=== PATIENT | female | born 1965 | race Caucasian/White ===

== ENCOUNTER → 2016-12-09 | Outpatient (CLI) | payer OTHER, MEDICAID | LOC: FIMAGING 10:01 | PROVIDERS: ATTEND Physician Assistant | DX: D64.9 Anemia, unspecified (principal); N18.9 Chronic kidney disease, unspecified ==

== ENCOUNTER → 2018-06-23 | Outpatient (CLI) | payer OTHER, MEDICAID | PROVIDERS: ATTEND Internal Medicine Gastroenterology | DX: R13.12 Dysphagia, oropharyngeal phase (principal); K44.9 Diaphragmatic hernia without obstruction or gangrene; K22.4 Dyskinesia of esophagus | CPT/HCPCS: 74220; 74230; 92611; G8996; G8997; G8998 ==

== ENCOUNTER → 2018-07-11 | Outpatient (CLI) | payer OTHER, MEDICAID ==
[2018-07-11 11:35] LABS: PLATELET COUNT 214 10^3/uL (150-400)
== END ==
LOC: FPAT 10:48
PROVIDERS: ATTEND Internal Medicine Gastroenterology
DX: Z01.818 Encounter for other preprocedural examination (principal)

== ENCOUNTER 2018-07-23 09:19 | Emergency (ER) | payer OTHER, MEDICAID ==
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
[2018-07-23 12:06] VITALS: BP 95/63
== END 2018-07-23 12:03 | disposition home or self-care (01) ==
PROC: 2W3RX1Z Immobilization of Left Lower Leg using Splint (ICD-10-PCS; principal; 2018-07-23)
DX: S82.242A Displaced spiral fracture of shaft of left tibia, initial encounter for closed fracture (principal); S82.432A Displaced oblique fracture of shaft of left fibula, initial encounter for closed fracture; G82.54 Quadriplegia, C5-C7 incomplete; W23.1XXA Caught, crushed, jammed, or pinched between stationary objects, initial encounter; Y92.9 Unspecified place or not applicable; Z99.3 Dependence on wheelchair

== ENCOUNTER 2018-07-29 10:21 | Day surgery (SDC) | payer OTHER, MEDICAID ==
[2018-07-29] MEDS ORDERED: LR 1,000 ML IV ONE (10:43)
[2018-07-29] MEDS ORDERED: LIDOCAINE 1% 2 ML INJ ID PRN (10:43)
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
[2018-07-29] MEDS ORDERED: PROPOFOL/EMULSION 500 MG/50 ML BOTTLE IV ONE (11:51)
--- NOTE | 2018-07-29 11:56 | PDGENHP ---
History & Physical Chief Complaint: dysphagia History of Present Illness: trouble swallowing with possible stricture on UGI Pertinent Past, Social, Family History: quadraplegia Relevant Physical Exam: cv rrr s1s2 nl. chest CTA. abd + bs soft Cardiorespiratory Assessment: asa 11
--- NOTE | 2018-07-29 12:20 | GIREPORT ---
Formerly [facility], 1928–1983 Surgical Services - Endoscopy Department Patient Name: Emilee Raines Procedure Date: 07/29/2018 11:34 AM Patient Type: Outpatient Attending MD/ ER Physician: Enid Hogan MD Procedure: Upper GI endoscopy Indications: Dysphagia, Abnormal UGI series abnormal motility with possible strictur e. Providers: Enid Hogan MD Medicines: Monitored Anesthesia Care Complications: No immediate complications. Description of Procedure: After obtaining informed consent, the endoscope was passed under direct vision. Throughout the procedure, the patient's blood pressure, pulse, and oxygen saturations were monitored continuously. The Endoscope was intro duced through the mouth, and advanced to the second part of duodenum. The [facility] er GI endoscopy was accomplished without difficulty. The patient tolerated th e procedure well. Findings: LA Grade C (one or more mucosal breaks continuous between tops of 2 or more mucosal folds, less than 75% circumference) esophagitis with no bleedin g was found in the lower third of the esophagus. A medium-sized hiatal hernia was present. The stomach was normal. The examined duodenum was normal. Estimated Blood Loss: Estimated blood loss: none. Post Op Diagnosis: - LA Grade C reflux esophagitis. No stricture seen. Dilation not done d ue to active inflammation. - Medium-sized hiatal hernia. - Normal stomach. - Normal examined duodenum. - No specimens collected. Recommendation: - Patient has a contact number available for emergencies. The signs and symptoms of potential delayed complications were discussed with the pat ient. Return to normal activities tomorrow. Written discharge instructions we re provided to the patient. - Resume previous diet. - Continue present medications. - Use Prilosec OTC 20 mg PO daily. - Return to GI office in 6 months. - Discharge patient to home. - Thank you for allowing me to participate in the care of your patient. Attending Participation: I personally performed the entire procedure. Enid Hogan MD Enid Hogan MD 07/29/2018 12:20:24 PM This report has been signed electronicallyEnid Hogan MD Number of Addenda: 0 Note Initiated On: 07/29/2018 11:34 AM [email or web address]
--- NOTE | 2018-07-29 12:21 | POSTANESTH ---
Post Anesthetic Evaluation Cardiovascular Status: Normal, Stable Respiratory Status: Normal, Stable Level of Consciousness/Mental Status: Mildly Sleepy, Arousable Pain Control: Adequate, Prn Tx Ordered Nausea/Vomiting Control: Adequate, Prn Tx Ordered Complications Possibly Related to Anesthesia: None Noted
[2018-07-29] MEDS ORDERED: ALBUTEROL 3 ML DEYVIAL IH PRN (12:35)
[2018-07-29] MEDS ORDERED: HYDROCODONE/APAP 5/325 TAB PO PRN (12:35)
[2018-07-29] MEDS ORDERED: oxyCODONE IR 5 MG TAB PO PRN (12:35)
[2018-07-29] MEDS ORDERED: LR 500 ML IV PRN (12:35)
[2018-07-29] MEDS ORDERED: HYDROmorphONE/DILAUDID 2 MG/ML INJ IVP PRN (12:35)
[2018-07-29] MEDS ORDERED: NALOXONE HCL 0.4 MG/ML INJ IVP PRN (12:35)
[2018-07-29] MEDS ORDERED: fentaNYL 100 MCG/2 ML INJ IVP PRN (12:35)
[2018-07-29] MEDS ORDERED: ONDANSETRON 4 MG/2 ML VIAL IVP PRN (12:35)
[2018-07-29] MEDS ORDERED: MIDAZOLAM 2 MG/2 ML VIAL IVP ONE (12:39)
[2018-07-29] MEDS ORDERED: fentaNYL 100 MCG/2 ML INJ IVP ONE (12:40)
[2018-07-29 12:51] VITALS: BP 109/77
== END 2018-07-29 13:23 | disposition home or self-care (01) ==
LOC: FSGY 10:21
PROVIDERS: ATTEND Internal Medicine Gastroenterology
PROC: 0DJ08ZZ Inspection of Upper Intestinal Tract, Via Natural or Artificial Opening Endoscopic (ICD-10-PCS; principal; 2018-07-29 12:00)
DX: K20.9 Esophagitis, unspecified (principal); K44.9 Diaphragmatic hernia without obstruction or gangrene; G89.29 Other chronic pain
CPT/HCPCS: J2704

== ENCOUNTER 2018-11-05 14:38 | Inpatient (IN) | payer OTHER, MEDICAID ==
[2018-11-05] MEDS ORDERED: NS 1,000 ML IV ONE ×2 (14:53)
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
[2018-11-05 15:04] LABS: PLATELET COUNT 129 10^3/uL (150-400)
[2018-11-05] MEDS ORDERED: KETOROLAC 15 MG/1 ML SDV IVP ONE (15:58)
[2018-11-05] MEDS: CIPROFLOXACIN 400 MG/DEXTROSE 200 ML IV ONE ×2 (16:23→16:49)
[2018-11-05] MEDS ORDERED: ACETAMINOPHEN 325 MG TAB PO PRN (17:31)
[2018-11-05] MEDS ORDERED: ZOLPIDEM TARTRATE 5 MG TAB PO PRN (17:31)
[2018-11-05] MEDS ORDERED: ONDANSETRON 4 MG/2 ML VIAL IVP PRN (17:31)
--- NOTE | 2018-11-05 17:58 | PDGENHP ---
History and Physical History and Physical: CC: Cough and shortness of breath with some pleuritic chest discomfort HISTORY: This patient comes to the ER today for cough fever and shortness of breath. On arrival to the ER she was noted to be hypotensive and tachycardic but not hypoxemic. Her story goes back to October 21 when she started noticing feeling cold and was having some leaking of urine around her chronic indwelling Mead catheter. She saw an outpatient clinic physician on that day. A urine analysis showed 25 white blood cells. A culture was done but deemed to show contaminant. She was called back on October 26 for a repeat culture. She also changed the catheter on that date and for a few days the leaking stopped and she felt that her catheter was draining better. However bladder catheter again felt clogged and she was leaking around it for the past 7 days now. For the last 2 days she has developed cough shortness of breath and fevers and today her temperature was 102.7 degrees. In addition to the cough and shortness of breath she is noticing some pleuritic chest discomfort. Notably as her October 26 urine culture had growth of 3 different bacteria she was started on Cipro last night orally. She has neurogenic bladder from a spine injury with chronic indwelling Mead catheter. She has had some infections in the past. She has had suspected bacterial pneumonia on 1 occasion and a viral lung infection on another occasion. ROS: Her appetite is poor but she is not vomiting. Her fluid intake has been decreased A comprehensive 10 system review revealed no other significant findings PAST MEDICAL HISTORY: C6 quadriplegia related to an accident Chronic indwelling Mead catheter from neurogenic bladder urinary tract infections Spine surgeries Tracheostomy FAMILY MEDICAL HISTORY: No related or pertinent medical issues in relatives SOCIAL HISTORY: Lives in a private home Has caretakers at home MEDICATIONS: The patients list has been reconciled by our clinical pharmacist in the EMR. I have reviewed the list and ordered appropriate medicines. PHYSICAL EXAMINATION: Vital Signs: Initial blood pressure 99/65, pulse 132, temperature 38 degrees, respirations 26. Improved in the ER to 110/70, pulse 100, respirations 16. 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 Compared to previous images there is some very subtle abnormality in the left load mid lung that could represent possible infiltrate of pneumonia. Lungs are slightly hyperexpanded. Old hardware in her cervical spine 12 LEAD EKG: None at present ASSESSMENT: * SIRS, Likely Early Sepsis (note that her presenting blood pressure of 99/65 is normal for her and she is rarely higher than that in fact usually lower.) * Suspect pneumonia community-acquired as cause of the sepsis * PE is also in differential with chest pain and a high D-dimer and minimal infiltrate, a * Metabolic acidosis * I am doubtful as to whether she has an actual urinary tract infection, however if she does the antibiotics given for her respiratory illness will treat her urinary illness and her catheter was changed this morning at home * Quadriplegia with neurogenic bladder and chronic indwelling Mead catheter; she has been having difficulty whether catheter at home lately and from the description I suspect the catheter has been plugging and she has been leaking around the catheter * Normocytic anemia. She has a chronic normocytic anemia usually at hemoglobin 11 she is now hemoglobin just under 10 PLANS: * Inpatient admission for further diagnostic evaluations and definitive treatment of above presentation, will need more than 48 hr * I have ordered a CT of chest to further assess for pneumonia and/or PE * Blood cultures have been drawn in the ER will follow those for results * Respiratory pathogen panel * At this point the patient does not need further fluid resuscitation but will watch closely for any recurrence of sepsis signs * DVT prophylaxis * Skin protection precautions here due to her quadriplegia I have reviewed the patient's case in detail with Dr. Dr. Toby Light I have reviewed the patient's past medical records as part of this assessment, including previous hospital admission records
[2018-11-05] MEDS ORDERED: IOPAMIDOL (ISOVUE 370) 100 ML BTL IV ONE (18:11)
[2018-11-05] MEDS: CIPROFLOXACIN 500 MG TAB PO SCH (19:57)
[2018-11-05] MEDS: OSELTAMIVIR PHOSPHATE 75 MG CAP PO SCH (19:57)
[2018-11-05] MEDS ORDERED: MELATONIN 3 MG TAB PO SCH (21:00)
[2018-11-05] MEDS: ALBUTEROL 3 ML DEYVIAL IH PRN (22:47)
[2018-11-06 05:34] LABS: PLATELET COUNT 134 10^3/uL (150-400)
[2018-11-06] MEDS: OSELTAMIVIR PHOSPHATE 75 MG CAP PO SCH (08:21)
[2018-11-06] MEDS: CIPROFLOXACIN 500 MG TAB PO SCH (08:22)
[2018-11-06] MEDS ORDERED: DARIFENACIN HYDROBROMIDE 15 MG PO SCH (09:00)
[2018-11-06] MEDS ORDERED: ENOXAPARIN 40 MG/0.4 ML SYR SC SCH (09:00)
--- NOTE | 2018-11-06 09:34 | PDMN ---
Medical Necessity Medical necessity: Pt meets IP criteria as of 11/05/2018 per and BECCA [id number] ( pneumonia, community acquired); est los > 2 mn for ongoing tx and management of pneumonia with tachycardia, fever and dyspnea as well as possible UTI in a quadriplegic patient with chronic indwelling de paz catheter; requiring further workup, IV ABX and PT/OT.
--- NOTE | 2018-11-06 10:10 | ASMTCMCOM ---
CM Note CM Note Notes: Pt is a 53 yo F, presents with pneumonia, sepsis, UTI. Pt is a C6 quadraplegic, hx neurogenic bladder, de paz cath, and tracheostomy. Pt lives in a private home, has caretakers at home. Pt's last admission to [facility] was in 2008. MDPOA is in chart. No therapies ordered at this time. CM to follow. Plan: TBD Date Signed: 11/06/2018 10:10 AM Electronically Signed By:ESCOBAR Vicente
[2018-11-06 11:33] VITALS: BP 126/82
[2018-11-06] MEDS: ALBUTEROL 3 ML DEYVIAL IH PRN (12:30)
[2018-11-06] MEDS ORDERED: POTASSIUM CL 20 MEQ PKT PO SCH (14:15)
[2018-11-06] MEDS ORDERED: POTASSIUM CL 20 MEQ PKT PO ONE (14:30)
--- NOTE | 2018-11-06 15:10 | ASDISCHSUM ---
Discharge Information Plan Status:Home with No Needs Medically Cleared to Leave: Discharge Date: CM D/C Disposition:Home, Routine, Self-Care ADT D/C Disposition:Home, Routine, Self-Care Projected Discharge Date: Transportation at D/C:ALS/BLS Discharge Delay Reason: Follow-Up Date: Discharge Slot: Final Diagnosis: Placement Information Patient Contact Information Contact Name:JAYLA Relationship:Daughter Address:[address] [place] [address] Work Phone: City:[facility] Phone: State/Zip Code:[place] [address] Email: Financial Information Financial Class:Medicare Primary Plan Desc:MEDICARE INPATIENT Primary Plan Number:[id number] Secondary Plan Desc:[place] Secondary Plan Number:[id number] Assessment Information [facility] CM Progress Note CM Note CM Note Notes: Pt is a 53 yo F, presents with pneumonia, sepsis, UTI. Pt is a C6 quadraplegic, hx neurogenic bladder, de paz cath, and tracheostomy. Pt lives in a private home, has caretakers at home. Pt's last admission to [facility] was in 2008. MDPOA is in chart. No therapies ordered at this time. CM to follow. Plan: TBD Date Signed: 11/06/2018 10:10 AM Electronically Signed By:ESCOBAR Vicente Case Management Discharge Plan Note Case Management Discharge Discharge Order Complete? Answers: Yes Patient to Obtain Answers: Other Notes: SETH, BLS Medications Transportation Arranged Answers: [facility] Stretcher Case Management Transport Answers: Yes Form Complete Discharge Comments Notes: CM met with pt. Her transport person was unable to transport, CM arranged BLS transport through [facility] for 3:45pm today. CM provided education. Pt reported no other needs at this time. has services arranged for care at home. Date Signed: 11/06/2018 03:09 PM Electronically Signed By:ESCOBAR Vicente Intervention Information
--- NOTE | 2018-11-06 15:10 | ASMTDCNOTE ---
Case Management Discharge Discharge Order Complete? Answers: Yes Patient to Obtain Answers: Other Notes: [facility], BLS Medications Transportation Arranged Answers: [facility] Stretcher Case Management Transport Answers: Yes Form Complete Discharge Comments Notes: CM met with pt. Her transport person was unable to transport, CM arranged BLS transport through [facility] for 3:45pm today. CM provided education. Pt reported no other needs at this time. has services arranged for care at home. Date Signed: 11/06/2018 03:09 PM Electronically Signed By:ESCOBAR Vicente
--- NOTE | 2018-11-06 15:13 | ASMTLACE ---
LACE Length of stay for Answers: Less than 1 day current admission Acuity / Level of Answers: Yes Care: Did the patient have an inpatient admission? Comorbidities - select Answers: Other Notes: C6 Quad all that apply # of Emergency department Answers: 1-2 visits in the last 6 months Score: 5 Date Signed: 11/06/2018 03:12 PM Electronically Signed By:ESCOBAR Vicente
--- NOTE | 2018-11-07 15:37 | GDS ---
SERVICE: [facility] hospitalist. CONSULTS: None. PROCEDURE: 1. Chest x-ray on the day of admission showing possible bilateral pneumonia, lower cervical fusion h ardware. 2. CT chest scan done the day of admission, negative for pulmonary embolism, patchy bilateral lower lobe infiltrate, atelectasis versus early pneumonia. HISTORY AND PHYSICAL: Please see previously dictated note by Dr. Brink. ADMISSION DIAGNOSES: 1. Systemic inflammatory response syndrome. 2. Community-acquired pneumonia. 3. Abnormal urine culture. 4. Quadriplegia. 5. Normocytic anemia. DISCHARGE DIAGNOSES: 1. Acute influenza A. 2. Viral pneumonitis. 3. Recent abnormal urine culture. 4. Quadriplegia. 5. Normocytic anemia, chronic. HOSPITAL COURSE: The patient is a 53-year-old female with quadriplegia that came into the emergency department for evaluation because of cough, fever, and shortness of breath. She had been evaluated e david in the week at her primary care provider when she was having some mild malaise, at which time, a urine culture was sent. Urine culture came back with 3 organisms and she was started on Cipro 500 mg b.i.d. on the day prior to admission. She subsequently developed shortness of breath, fever up t o 102.7, and cough, so came into the emergency department for evaluation. She had a chest x-ray as a michael, along with CBC showing pancytopenia, along with an abnormal D-dimer, which resulted in a CT sca n as above. She was admitted to the hospital for presumed community-acquired pneumonia, antibiotic treatment, SIR S. Subsequently, her influenza swab returned positive for influenza A. Overnight, she was given IV fluids, and on the day of discharge, she wanted to go home and continue convalescing at home. She wa s able to eat and drink without difficulty. She had repeat lab work, which showed ongoing pancytopen ia about the same, and mild hypokalemia, which was replaced orally before she left. She is a quadriplegic and says that she will feel better and recuperate better at home where she has all of her equipment and it is easier to take care of herself, along with the assistance of her famil y members. She had low-grade temperatures throughout her stay. Preliminary blood cultures were negative and her O2 remained stable on room air. She felt significantly better after IV fluid hydration and agreed t o a quick followup with her primary care provider at my practice, [facility]; kelsie poon, she was discharged home. DISCHARGE MEDICATIONS: She should continue her home medications, which included Cipro 500 mg b.i.d., along with Tamiflu to complete a full 5 day course of treatment. She should follow up with her [facility] care provider, Neva Gilmore in the clinic in the next 3 to 5 days or she can also see me in the [facility] clinic. If at any time she has increasing shortness of breath, unable to stay hydrated, or other concerns, she should return immediately for re-evaluation. Review of chest x-ray does not reveal a lobar pneumonia, so it is quite likely that this is viral pne umonitis related to influenza, so antibiotics are not indicated (other than for her previously diagno sed urinary tract infection). /[id number]/MODL
--- NOTE | 2018-11-07 16:24 | CPEKG ---
Test Reason : OPEN Blood Pressure : / mmHG Vent. Rate : 126 BPM Atrial Rate : 127 BPM P-R Int : 142 ms QRS Dur : 072 ms QT Int : 335 ms P-R-T Axes : 053 029 000 degrees QTc Int : 486 ms Sinus tachycardia Probable left atrial enlargement Borderline repol abnormality, diffuse leads Compared with 07/11/2018, HR faster. Repol abnormality now present Confirmed by Trish Hong ([id number]) on 11/07/2018 4:23:48 PM Referred By: Confirmed By:Trish Hong
== END 2018-11-06 16:16 | disposition home or self-care (01) | DRG 193 ==
LOC: EDUNIT# → F3E 17:30
PROVIDERS: ADMIT Internal Medicine; ATTEND Internal Medicine
DX: J10.08 Influenza due to other identified influenza virus with other specified pneumonia (principal); J18.9 Pneumonia, unspecified organism; G82.53 Quadriplegia, C5-C7 complete; Z98.1 Arthrodesis status; Z96.0 Presence of urogenital implants; Z87.440 Personal history of urinary (tract) infections; N31.9 Neuromuscular dysfunction of bladder, unspecified; D64.9 Anemia, unspecified
CPT/HCPCS: 84484-ER; 96365; J0744; J1650; J1885; J1956; J7613; Q9967

== ENCOUNTER 2018-11-09 15:02 | Inpatient (IN) | payer OTHER, MEDICAID ==
[2018-11-09] MEDS ORDERED: NS 500 ML IV ONE (15:37)
[2018-11-09] MEDS ORDERED: ALTEPLASE 2 MG VIAL IVP PRN (16:19)
--- NOTE | 2018-11-09 16:19 | EDPHY ---
H & P Stated Complaint: SOB, cough, recent pneumonia and influenza. Time Seen by Provider: 11/09/18 15:36 HPI/ROS: CHIEF COMPLAINT: Hypoxia HISTORY OF PRESENT ILLNESS: 53-year-old female with quadriplegia presents with hypoxia. She was admitted on 11/05/2018 for influenza and pneumonia. She was discharged home 2 days ago on Cipro for a urinary tract infection and on Tamiflu for influenza. Since discharge home, she has continued to have a moderate cough, fatigue and decreased appetite. No fever or chills. She was seen in her primary care physician's office just prior to arrival and oxygen saturation was 85% on room air. She denies feeling short of breath. REVIEW OF SYSTEMS: complete 10 point ROS reviewed and is negative except for the noted elements in the HPI - Personal History Current Tetanus Diphtheria and Acellular Pertussis (TDAP): Yes - Medical/Surgical History Hx Asthma: No Hx Chronic Respiratory Disease: No Hx Diabetes: No Hx Cardiac Disease: No Hx Renal Disease: No Hx Cirrhosis: No Hx Alcoholism: No Hx HIV/AIDS: No Hx Splenectomy or Spleen Trauma: No Other PMH: C6 quad. R brachial artery inj. UTI. Pneumonia, influenza oct 2018. - Social History Smoking Status: Never smoked Drug Use: None Additional Social History: Lives in own home - Physical Exam Exam: General Appearance: Alert, pleasant and talkative, does not appear ill Eyes: Pupils equal and round, no conjunctival pallor or injection ENT, Mouth: Mucous membranes moist Neck: Normal inspection Respiratory: Lungs are clear to auscultation Cardiovascular: Regular rate and rhythm Gastrointestinal: Abdomen is soft, distended and nontender Neurological: Quadriplegia Skin: Warm and dry Extremities: No tenderness or swelling Psychiatric: Mood and affect normal Constitutional: Initial Vital Signs Temperature (C) 36.4 C 11/09/18 15:08 Heart Rate 106 H 11/09/18 15:08 Respiratory Rate 22 H 11/09/18 15:08 Blood Pressure 81/52 L 11/09/18 15:08 O2 Sat (%) 86 L 11/09/18 15:08 O2 Delivery Mode Nasal Cannula O2 (L/minute) 1 Allergies/Adverse Reactions: amoxicillin [Amoxicillin] Allergy (Verified 11/05/18 14:45) Anaphylaxis Sulfa (Sulfonamide Antibiotics) Allergy (Verified 11/05/18 14:45) Swelling/neck,face,throat Home Medications: Medication Instructions Recorded Ciprofloxacin HCl [Ciprofloxacin] 500 mg PO BID 11/05/18 Darifenacin Hydrobromide 15 mg PO DAILY 11/05/18 [Darifenacin ER] Acetaminophen [Tylenol 325mg (*)] 650 mg PO Q6 PRN tab 11/06/18 Oseltamivir Phosphate [Tamiflu 75 75 mg PO BIDMEAL #8 cap 11/06/18 mg (*)] Medical Decision Making - Diagnostics Imaging Results: Chest X-Ray 11/09/18 15:36 Impression: Worsening left lower lobe, medial basilar segment, pneumonia. Imaging: Discussed imaging studies w/ bingo caller Radiologist ED Course/Re-evaluation: This patient presents with worsening symptoms after recent diagnosis of influenza and pneumonia. Initial blood pressure is 76/54. Her usual blood pressure is 90/60. She has difficult IV access, but ultimately an IV was established. Initial lactate 2.4, repeat lactate 1.0. The sepsis protocol followed. IV fluids given per the sepsis protocol. Chest x-ray reveals a left lower lobe infiltrate. Blood cultures were drawn and Rocephin and Zithromax given. 1710: BP 121/99, HR 88, feels better with IV fluids. The hospitalist service was consulted for admission. Differential Diagnosis: Differential diagnosis includes empyema, pulmonary edema, pulmonary embolism, bronchospasm - Data Points Laboratory Results: Laboratory Results 11/10/18 05:16 11/10/18 05:16 Microbiology Results: MICROBIOLOGY 11/09/18 11:54 Nasal, Sinus - Swab Respiratory Panel (PCR) - Final Influenza Virus Type A 2009 H1 Medications Given: Azithromycin 500 mg/ Sodium (Chloride) 255 mls @ 255 mls/hr IV DAILY DERECK PRN Reason: Protocol Stop: 12/10/18 08:59 Last Admin: 11/10/18 09:14 Dose: 255 mls Ceftriaxone Sodium/Dextrose (Rocephin 1 Gm (Premix)) 50 mls @ 100 mls/hr IV DAILY DERECK PRN Reason: Protocol Stop: 12/10/18 08:59 Last Admin: 11/10/18 08:12 Dose: 50 mls Miscellaneous Medication (Darifenacin Hydrobromide [Darifenacin Er]) 15 mg PO DAILY DERECK Stop: 05/09/19 08:59 Last Admin: 11/10/18 08:16 Dose: Not Given Discontinued Medications Azithromycin (Zithromax) 500 mg PO EDNOW ONE PRN Reason: Protocol Stop: 11/09/18 16:43 Last Admin: 11/09/18 17:25 Dose: 500 mg Sodium Chloride (Ns) 500 mls @ 1,000 mls/hr IV EDNOW ONE PRN Reason: Protocol Stop: 11/09/18 16:06 Last Admin: 11/09/18 18:57 Dose: Not Given Sodium Chloride (Ns) 1,800 mls @ 3,600 mls/hr 30 ml/kg infuse over 30 min ( 1800 ml) IV EDNOW ONE PRN Reason: Protocol Stop: 11/09/18 17:04 Last Admin: 11/09/18 16:40 Dose: 1,800 mls Ceftriaxone Sodium/Dextrose (Rocephin 1 Gm (Premix)) 50 mls @ 100 mls/hr IV EDNOW ONE PRN Reason: Protocol Stop: 11/09/18 17:11 Last Admin: 11/09/18 17:24 Dose: 50 mls Potassium Chloride (Klor-Con) 40 meq PO ONCE ONE PRN Reason: Protocol Stop: 11/09/18 18:21 Last Admin: 11/09/18 18:36 Dose: 40 meq Potassium Chloride (Klor-Con) 10 - 40 meq PO ONCE ONE PRN Reason: Protocol Stop: 11/10/18 08:32 Last Admin: 11/10/18 09:21 Dose: 10 meq Potassium Chloride (Klor-Con) 10 meq PO ONCE ONE PRN Reason: Protocol Stop: 11/10/18 19:56 Last Admin: 11/10/18 21:12 Dose: 10 meq Departure - Departure Disposition: [facility]
[2018-11-09] MEDS ORDERED: NS 1,800 ML IV ONE (16:35)
[2018-11-09] MEDS ORDERED: AZITHROMYCIN 250 MG TAB PO ONE (16:42)
[2018-11-09 17:09] LABS: PLATELET COUNT 153 10^3/uL (150-400)
[2018-11-09] MEDS ORDERED: POTASSIUM CL 20 MEQ TAB ONE (17:51)
[2018-11-09] MEDS ORDERED: ONDANSETRON DISINTEGRATING 4 MG TAB PO PRN (17:56)
[2018-11-09] MEDS ORDERED: ONDANSETRON 4 MG/2 ML VIAL IVP PRN (17:56)
[2018-11-09] MEDS ORDERED: ACETAMINOPHEN 325 MG TAB PO PRN (17:56)
[2018-11-09] MEDS ORDERED: PROTOCOL POTASSIUM 1 DOSE MISC PRN (17:57)
[2018-11-09] MEDS ORDERED: POTASSIUM CL 10 MEQ TAB PO ONE (18:20)
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
[2018-11-09] MEDS ORDERED: CIPROFLOXACIN 500 MG TAB PO SCH (21:00)
[2018-11-10] MEDS: DARIFENACIN HYDROBROMIDE 15 MG PO SCH (08:16)
[2018-11-10] MEDS ORDERED: POTASSIUM CL 10 MEQ TAB PO ONE ×2 (08:31→19:55)
[2018-11-10] MEDS: AZITHROMYCIN IV 500 MG in NS 250 ML IV SCH (09:14)
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
--- NOTE | 2018-11-10 10:20 | ASMTCMCOM ---
CM Note CM Note Notes: Pt is a 53 y/o female admitted for hypoxia. Pt is a quad. Pt lives w/ her sister and has a caregiver to assist her. PT has been ordered and awaiting recommendations. Needs are TBD at this time. CM to follow. Plan: TBD Date Signed: 11/10/2018 10:20 AM Electronically Signed By:ESCOBAR Zamorano
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
[2018-11-10] MEDS ORDERED: POTASSIUM CL 20 MEQ PKT PO ONE (17:15)
[2018-11-11] MEDS: AZITHROMYCIN IV 500 MG in NS 250 ML IV SCH (07:58)
[2018-11-11 08:47] VITALS: BP 134/87
[2018-11-11] MEDS: DARIFENACIN HYDROBROMIDE 15 MG PO SCH (09:38)
--- NOTE | 2018-11-11 10:46 | ASMTLACE ---
LACE Length of stay for Answers: 2 days current admission Acuity / Level of Answers: Yes Care: Did the patient have an inpatient admission? Comorbidities - select Answers: Mild liver or renal all that apply disease Opioid dependence / Chronic pain Other Notes: C6 quad # of Emergency department Answers: 3-4 visits in the last 6 months Score: 15 Date Signed: 11/11/2018 10:45 AM Electronically Signed By:ESCOBAR Zamorano
--- NOTE | 2018-11-11 10:46 | ASMTDCNOTE ---
Case Management Discharge Discharge Order Complete? Answers: Yes Patient to Obtain Answers: via Family Medications Transportation Arranged Answers: Family/Friends EMTALA Complete Answers: No Case Management Transport Answers: No Form Complete Faxed Final Orders Answers: No Agency/Facility Transfer Answers: No Report Printed & Faxed to Receiving Agency Family Notified Answers: No Discharge Comments Notes: CM spoke to [place] NP regarding d/c POC. Pt is being d/c'd today. CM met w/ pt to see if she needed any services. Pt reported that she has caregivers that can assist. Pt will arrange her own transportation back home. Pt uses a wheelchair at baseline. CM available for changes. Plan: Independent w/ caregivers Date Signed: 11/11/2018 10:45 AM Electronically Signed By:ESCOBAR Zamorano
--- NOTE | 2018-11-11 14:19 | GDS ---
DISCHARGE DIAGNOSES: 1. Acute respiratory failure. 2. Pneumonia. 3. Hypokalemia. 4. Leukopenia. 5. Anemia. 6. Chronic [place]. 7. History of C6 quadriplegic. 8. Influenza A. PHYSICAL EXAM: GENERAL: The patient is alert. VITAL SIGNS: Afebrile at 36.6, pulse is 82, respirat ory rate 16, blood pressure is 134/87. She is saturating 93% on room air. I have seen and evaluated the patient on the day of discharge. HOSPITAL COURSE: The patient is a 53-year-old female, presented to the hospital with complaints of s hortness of breath. She was evaluated and diagnosed with: 1. Pneumonia. The patient was placed on azithromycin and Rocephin during this hospitalization. Her symptoms have significantly improved, and she will be discharged home on Levaquin. 2. Acute hypoxemic respiratory failure. This was in the setting of pneumonia and has resolved. 3. Sepsis. This was with tachycardia, as well as hypotension. This has resolved. 4. Metabolic acidosis. This has resolved with treatment. 5. Urinary tract infection. Previously been taking Cipro. This will be continued to be treated wit h antibiotic therapy. 6. Anemia. This is stable. 7. Leukopenia. This may be secondary to the patient's recent flu infection. She will follow up wit h this in the outpatient setting. 8. Hypokalemia. This has been replaced. 9. Disposition. She will be discharged home independently. Home health care has been offered. How ever, she denies needing any. There are no pending studies. DISCHARGE MEDICATIONS: Please refer to EMR form. I have provided the patient a prescription for Lev aquin. I spent greater than 35 minutes in the care, coordination, and management of the patient's dispositio n. /[id number]/MODL
== END 2018-11-11 11:29 | disposition home or self-care (01) | DRG 871 ==
LOC: INTOOBSV 16:50 → F3E 18:09 → OBSVTOIN 11-10 09:44
PROVIDERS: ADMIT Internal Medicine; ATTEND Internal Medicine
DX: A41.9 Sepsis, unspecified organism (principal); J10.00 Influenza due to other identified influenza virus with unspecified type of pneumonia; J96.00 Acute respiratory failure, unspecified whether with hypoxia or hypercapnia; G82.53 Quadriplegia, C5-C7 complete; N39.0 Urinary tract infection, site not specified; E87.2 Acidosis; E87.6 Hypokalemia; D64.9 Anemia, unspecified; Z87.440 Personal history of urinary (tract) infections
CPT/HCPCS: 96374; G0378; J0456; J0696

== ENCOUNTER → 2019-01-20 | Outpatient (CLI) | payer OTHER, MEDICAID | LOC: FIMAGING 14:27 | PROVIDERS: ATTEND Family Medicine | DX: M25.551 Pain in right hip (principal); G82.50 Quadriplegia, unspecified; M16.11 Unilateral primary osteoarthritis, right hip ==